=== PATIENT | male | born 2000 | race Caucasian/White ===

== ENCOUNTER 2024-03-31 21:11 | Emergency (ER) | payer SELFPAY ==
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
[2024-03-31] MEDS ORDERED: BACI/NEOMYCIN/POLY OINT 15GM TOP ONE (22:56)
[2024-03-31] MEDS ORDERED: HYDROCODONE/APAP 10/325 TAB ONE (22:57)
[2024-03-31] MEDS ORDERED: KETOROLAC 30 MG/ML INJ ONE (22:57)
[2024-03-31] MEDS ORDERED: TDAP (DIPHTH,PERTUSS(ACELL),TET VAC) 0.5 ML VIAL IMVAC ONE (22:57)
[2024-03-31 23:16] VITALS: O2SAT 100
[2024-03-31 23:17] VITALS: BP 119/78; TEMP 98.4
== END 2024-03-31 23:11 | disposition home or self-care (01) ==
LOC: ER 21:11
DX: T23.291A Burn of second degree of multiple sites of right wrist and hand, initial encounter (principal)
CPT/HCPCS: 96372; 99284